=== PATIENT | male | born 1945 | race Caucasian/White ===

== ENCOUNTER → 2019-09-21 | Outpatient (CLI) | payer OTHER ==
[~2019-09-21] MED LIST: ASA81BEC PO; EFFIENT10 MG PO; FARXIGA10 MG PO; LIPITOR80 MG PO; NEURONTIN 300M300 M2 PO; NORCO 5-325 TA1 EAC1 PO; OZEMPIC0.25 MG/0. INJECTION; PRILOSEC OTC20 MG PO; REQUIP 1 MG TABL1 M1 PO; TOPROL XL25 MG PO
== END ==
LOC: SJCVC 11:33
DX: I25.10 Atherosclerotic heart disease of native coronary artery without angina pectoris (principal); I73.9 Peripheral vascular disease, unspecified; E78.00 Pure hypercholesterolemia, unspecified; E11.9 Type 2 diabetes mellitus without complications; E78.5 Hyperlipidemia, unspecified; Z79.82 Long term (current) use of aspirin; Z79.899 Other long term (current) drug therapy

== ENCOUNTER → 2019-09-25 | Outpatient (CLI) | payer OTHER ==
[~2019-09-25] VITALS: Ht 172.7 cm; Wt 81.6 kg
[2019-09-25 08:07] VITALS: BP 123/74
== END | disposition home or self-care (01) ==
LOC: CATH 06:40
DX: I70.213 Atherosclerosis of native arteries of extremities with intermittent claudication, bilateral legs (principal); I70.1 Atherosclerosis of renal artery; I10 Essential (primary) hypertension; I25.10 Atherosclerotic heart disease of native coronary artery without angina pectoris; I25.2 Old myocardial infarction; E11.9 Type 2 diabetes mellitus without complications; E78.00 Pure hypercholesterolemia, unspecified; N40.0 Benign prostatic hyperplasia without lower urinary tract symptoms; G62.9 Polyneuropathy, unspecified; Z98.890 Other specified postprocedural states; Z79.899 Other long term (current) drug therapy; Z79.82 Long term (current) use of aspirin; Z79.4 Long term (current) use of insulin